=== PATIENT | female | born 1975 | race Caucasian/White ===

== ENCOUNTER → 2018-03-22 | Outpatient (CLI) | payer OTHER | END | disposition home or self-care (01) | LOC: LAB SHORT 12:45 → LAB 12:45 | DX: N39.0 Urinary tract infection, site not specified (principal) | CPT/HCPCS: 87086; 87147 ==

== ENCOUNTER → 2018-09-05 | Outpatient (CLI) | payer OTHER ==
[2018-09-06 10:33] LABS: Candida species (DNA Probe) Negative (NEGATIVE); G. vaginalis (DNA Probe) Negative (NEGATIVE); T. vaginalis (DNA Probe) Negative (NEGATIVE)
== END | disposition home or self-care (01) ==
LOC: LAB SHORT 15:18 → LAB 15:18
PROVIDERS: Obstetrics & Gynecology
DX: N89.8 Other specified noninflammatory disorders of vagina (principal)
CPT/HCPCS: 87070; 87205; 87480; 87510; 87660

== ENCOUNTER → 2019-03-11 | Outpatient (CLI) | payer OTHER | END | disposition home or self-care (01) | LOC: LAB SHORT 15:54 → LAB 15:54 | DX: N39.0 Urinary tract infection, site not specified (principal) | CPT/HCPCS: 87086 ==

== ENCOUNTER → 2019-06-01 | Outpatient (CLI) | payer OTHER, BC | LOC: LAB SHORT 11:57 → LAB EV 11:57 | DX: N39.0 Urinary tract infection, site not specified (principal) | CPT/HCPCS: 87077; 87086; 87186 ==

== ENCOUNTER → 2019-10-15 | Outpatient (CLI) | payer BC, OTHER | END | disposition home or self-care (01) | LOC: LAB 14:19 → LAB SHORT 14:19 | DX: R30.0 Dysuria (principal) | CPT/HCPCS: 87086 ==

== ENCOUNTER → 2019-11-17 | Outpatient (CLI) | payer BC, OTHER | END | disposition home or self-care (01) | LOC: LAB SHORT 17:39 → LAB 17:39 | PROVIDERS: Obstetrics & Gynecology | DX: Z01.419 Encounter for gynecological examination (general) (routine) without abnormal findings (principal) | CPT/HCPCS: 87624; G0123 ==

== ENCOUNTER 2020-11-06 17:05 | Emergency (ER) | payer BC, OTHER ==
[~2020-11-06] VITALS: Ht 162.6 cm; Wt 81.7 kg
== END 2020-11-06 17:46 | disposition home or self-care (01) ==
LOC: ER 17:05
DX: S91.311A Laceration without foreign body, right foot, initial encounter (principal); Z23 Encounter for immunization; W45.8XXA Other foreign body or object entering through skin, initial encounter
CPT/HCPCS: 90471; 90714; 99282-25

== ENCOUNTER 2020-11-18 14:42 | Inpatient (IN) | payer BC, OTHER ==
[~2020-11-18] VITALS: Ht 162.6 cm; Wt 99.9 kg
[2020-11-18 16:09] LABS: BASOPHILS ABSOLUTE AUTO 0.04 K/mm3 (0.00-0.23); BASOPHILS PERCENT AUTO 0 % (0-2); EOSINOPHILS ABSOLUTE AUTO 0.04 K/mm3 (0.00-0.68); EOSINOPHILS PERCENT AUTO 0 % (0-6); Hematocrit 44.2 % (33.0-51.0); Hemoglobin 14.9 g/dL (11.5-16.0); IMMATURE GRAN ABSOLUTE AUTO 0.05 K/mm3 (0.00-0.10); IMMATURE GRAN PERCENT AUTO 0 % (0-1); LYMPHOCYTES ABSOLUTE AUTO 1.79 K/mm3 (0.84-5.20); LYMPHOCYTES PERCENT AUTO 16 % (21-46); MONOCYTES PERCENT AUTO 4 % (4-13); Mean Corpuscular HGB Conc 33.7 g/dL (31.5-36.5); Mean Corpuscular Volume 86 fL (80-100); Mean Platelet Volume 9.9 fL (9.1-12.4); NEUTROPHILS ABSOLUTE AUTO 8.95 K/mm3 (1.96-9.15); NEUTROPHILS PERCENT AUTO 79 % (41-73); Platelet Count 354 K/mm3 (150-400); RDW Coefficient Variation 12.9 % (11.7-14.2); RDW Standard Deviation 40.5 fL (35.1-46.3); Red Blood Cell Count 5.13 M/mm3 (3.80-5.20); White Blood Cell Count 11.27 K/mm3 (4.00-11.30)
[2020-11-18 16:30] LABS: Alanine Aminotransfer (ALT/SGP 22 U/L (12-78); Albumin, Blood 4.2 g/dL (3.4-5.0); Albumin/Globulin Ratio 1.1 (0.8-1.8); Alk Phos 89 U/L (50-136); Anion Gap 9 mmol/L (6-16); Aspartate Aminotrans (AST/SGOT 15 U/L (12-37); Bilirubin, Total 0.2 mg/dL (0.1-1.0); Blood Urea Nitrogen 13 mg/dL (8-24); Bun/Creatinine Ratio 16.1 (12.0-20.0); CO2, Blood 24 mmol/L (21-32); Calcium, Blood 9.4 mg/dL (8.5-10.1); Chloride, Blood 107 mmol/L (98-108); Creatinine, Blood 0.81 mg/dL (0.40-1.00); Globulin, Blood 3.8 g/dL (2.2-4.0); Glomerular Filtration Rate >60 (60-); Glucose, Blood 107 mg/dL (70-99); Sodium, Blood 140 mmol/L (136-145)
[2020-11-18 17:30] LABS: Source, Urine Clean Catch
[2020-11-18 17:33] LABS: Appearance, Urine Hazy (Clear); Bilirubin, Urine Neg (Neg); Blood, Urine 4+ (Neg); Color, Urine Yellow (P-Yellow); Glucose Qualitative, Urine Neg (Neg); Ketones, Urine Neg (Neg); Leukocyte Esterase, Urine 2+ (Neg); Nitrite, Urine Pos (Neg); Protein, Urine Neg (Neg); Specific Gravity, Urine 1.015 (1.003-1.022); Urobilinogen, Urine NORM (Normal)
[2020-11-18 17:54] LABS: Bacteria Many /hpf; Mucus Light (0-Heavy); Squamous Epithelial Cells Mod /hpf (Few)
[2020-11-18] MEDS ORDERED: ASPIR 8181 M1 PO (18:38)
[2020-11-18] MEDS ORDERED: SYNTHROID75 MCG PO (18:38)
[2020-11-18 19:39] LABS: Source, Urine Catheter
[2020-11-18 19:43] LABS: Appearance, Urine Hazy (Clear); Bilirubin, Urine Neg (Neg); Blood, Urine 5+ (Neg); Color, Urine Yellow (P-Yellow); Glucose Qualitative, Urine Neg (Neg); Ketones, Urine Neg (Neg); Leukocyte Esterase, Urine 2+ (Neg); Nitrite, Urine Pos (Neg); Protein, Urine 2+ (Neg); Specific Gravity, Urine 1.025 (1.003-1.022); Urobilinogen, Urine NORM (Normal)
[2020-11-18 19:54] LABS: Mucus Heavy (0-Heavy)
[2020-11-18 19:55] LABS: Bacteria Many /hpf; Red Blood Cells, Urine 25-50 /hpf (0-2); Squamous Epithelial Cells Not Seen /hpf (Few)
[2020-11-18 19:56] LABS: Transitional Epithelial Cells Rare /hpf (0-Rare)
--- NOTE | 2020-11-19 03:19 | NUR ---
SHIFT SUMMARY PT ER ADMIT THIS SHIFT FOR PYELONEPHRITIS, AND KIDNEY STONES WHICH ARE BEING CONSERVATIVELY MANAGED AT THIS TIME. PT ALSO IN WITH UTI. SHE WAS MEDICATED FOR R FLANK PAIN IN THE ER, AND WAS GIVEN IV ANTIBIOTICS. PT REPORTS THAT HER PAIN HAS GREATLY IMPROVED, AND SHE STATES THAT SHE FELT THE PAIN HAS MOVED FROM HER FLANK TO HER R LOWER QUADRANT AND DESCRIBES IT HAS A CRAMPING LIKE PAIN, BUT STATES MUCH IMPROVED FROM HOW SHE FELT WHEN SYMPTOMS FIRST BEGAN. SHE RATES HER PAIN 2 (0-10). PT ENCOURAGED TO CALL IF PAIN INCREASES. WHEN ROUNDED ON SHE JENNIE THE NEED FOR PAIN MEDICATION. PT HAS BEEN INDEPENDENT IN THE ROOM. SHE HAS BEEN VOIDING WITHOUT DIFFICULTY. STRAINER IN HAT TO CATCH A STONE THAT MAY PASS. PT A/OX4, PLESANT WITH CARE. BED IN LOWEST POSITION, CALL LIGHT WITHIN REACH.
[2020-11-19 05:01] LABS: BASOPHILS ABSOLUTE AUTO 0.03 K/mm3 (0.00-0.23); BASOPHILS PERCENT AUTO 0 % (0-2); EOSINOPHILS ABSOLUTE AUTO 0.05 K/mm3 (0.00-0.68); EOSINOPHILS PERCENT AUTO 1 % (0-6); Hematocrit 41.2 % (33.0-51.0); Hemoglobin 13.7 g/dL (11.5-16.0); IMMATURE GRAN ABSOLUTE AUTO 0.03 K/mm3 (0.00-0.10); IMMATURE GRAN PERCENT AUTO 0 % (0-1); LYMPHOCYTES ABSOLUTE AUTO 2.66 K/mm3 (0.84-5.20); LYMPHOCYTES PERCENT AUTO 26 % (21-46); MONOCYTES ABSOLUTE AUTO 0.74 K/mm3 (0.16-1.47); MONOCYTES PERCENT AUTO 7 % (4-13); Mean Corpuscular HGB 28.5 pg (26.0-34.0); Mean Corpuscular HGB Conc 33.3 g/dL (31.5-36.5); Mean Corpuscular Volume 86 fL (80-100); Mean Platelet Volume 10.1 fL (9.1-12.4); NEUTROPHILS ABSOLUTE AUTO 6.92 K/mm3 (1.96-9.15); NEUTROPHILS PERCENT AUTO 66 % (41-73); Platelet Count 284 K/mm3 (150-400); White Blood Cell Count 10.43 K/mm3 (4.00-11.30)
[2020-11-19 05:21] LABS: Alanine Aminotransfer (ALT/SGP 20 U/L (12-78); Albumin, Blood 3.2 g/dL (3.4-5.0); Alk Phos 76 U/L (50-136); Anion Gap 5 mmol/L (6-16); Aspartate Aminotrans (AST/SGOT 11 U/L (12-37); Bilirubin, Total 0.4 mg/dL (0.1-1.0); Blood Urea Nitrogen 11 mg/dL (8-24); Bun/Creatinine Ratio 14.4 (12.0-20.0); CO2, Blood 27 mmol/L (21-32); Calcium, Blood 8.6 mg/dL (8.5-10.1); Chloride, Blood 109 mmol/L (98-108); Creatinine, Blood 0.77 mg/dL (0.40-1.00); Globulin, Blood 3.3 g/dL (2.2-4.0); Glomerular Filtration Rate >60 (60-); Glucose, Blood 99 mg/dL (70-99); Potassium, Blood 3.9 mmol/L (3.5-5.5); Sodium, Blood 141 mmol/L (136-145); Total Protein, Blood 6.5 g/dL (6.4-8.2)
--- NOTE | 2020-11-19 12:24 | NUR ---
ASSUMING CARE FOR THIS PATIENT. RECEIVED BEDSIDE REPORT FROM MARIANA GARCIA.
--- NOTE | 2020-11-19 18:23 | NUR ---
SHIFT SUMMARY PT A&OX4 AND INDEPENDENT IN ROOM. PT CALLS APPROPRIATLY. TALKED WITH DR. MENON AND RECEIVED ORDER FOR LR AT 150 AND TO HAVE THE PATIENT DRINK FLUIDS IN HOPES THAT IT WILL HELP FLUSH THE STONE. URINE HAS BEEN STRAINED THROUGHOUT SHIFT AND NO STONE HAS BEEN SEEN. PT COMPLAINED OF HEADACHE THIS AFTERNOON, MEDICATED WITH APAP AND OFFERED COLD COMPRESS. PT TOOK SHOWER THIS AFTERNOON. CURENTLY IN ROOM WATCHING TV, CALL LIGHT WITH IN REACH. NO ACUTE CHANGES THIS SHIFT.
--- NOTE | 2020-11-19 18:55 | NUR ---
ASSUMED CARE RECEIVED REPORT FROM RADHA DE LOS SANTOS. PT RESTING QUIETLY, IN NO ACUTE DISTRESS. DENIES NEEDS AT THIS TIME. CALL LIGHT, POSSESSIONS IN REACH, BED IN LOW POSITION. CONTINUE TO MONITOR.
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
[2020-11-20] MEDS ORDERED: TAMS.4ER PO (12:40)
--- NOTE | 2020-11-20 15:48 | NUR ---
DISCHARGE PT DC HOME. NEW RX FAXED TO [facility]. IV TAKEN OUT BEFORE PT LEFT FLOOR. PT TAKEN OFF FLOOR VIA WHEELCHAIR TO EXIT BY THIS RN. WENT OVER DC PACKET WITH PATIENT BUT PT DID NOT TAKE PACKET WITH HER. PACKET IN FILE. PT THANK STAFF FOR HER CARE. PT GOT IN CAR W/O ANY ISUES, DROVE PT HOME.
== END 2020-11-20 13:12 | disposition home or self-care (01) | DRG 690 ==
LOC: ER 14:42 → MEDS 22:10
PROVIDERS: Emergency Medicine; Physician Assistant; ADMIT Family Medicine
DX: N13.6 Pyonephrosis (principal); E03.9 Hypothyroidism, unspecified; Z87.440 Personal history of urinary (tract) infections; Z79.82 Long term (current) use of aspirin
CPT/HCPCS: 36415; 74176; 76770; 80053; 81001; 83605; 83690; 85025; 87040; 87077; 87086; 87186; 96361; 96365; 96375; 99285-25; A9270; J0696; J1650; J1885; J2270; J2405; J7120; P9612

== ENCOUNTER → 2020-11-18 | Outpatient (CLI) | payer BC, OTHER ==
[~2020-11-18] MED LIST: ASPIR 8181 M1 PO; SYNTHROID75 MCG PO; TAMS.4ER PO
== END ==
LOC: LAB EV 15:14 → LAB SHORT 15:14
DX: R31.9 Hematuria, unspecified (principal)
CPT/HCPCS: 87077; 87086; 87186

== ENCOUNTER → 2020-11-25 | Outpatient (CLI) | payer BC, OTHER ==
[2020-12-02 13:11] LABS: CALCIUM OXALATE MONOHYDRATE 100 % (.); COLOR Brown (.); SIZE 3x3 mm (.); WEIGHT 9 mg (.)
== END | disposition home or self-care (01) ==
LOC: LAB 18:01 → LAB SHORT 18:01
PROVIDERS: Family Medicine
DX: N20.0 Calculus of kidney (principal)
CPT/HCPCS: 82365

== ENCOUNTER → 2023-10-03 | Outpatient (CLI) | payer OTHER | END | disposition home or self-care (01) | LOC: LAB SHORT 17:03 → LAB 17:03 | DX: R30.0 Dysuria (principal) | CPT/HCPCS: 87086 ==

== ENCOUNTER → 2024-06-03 | Outpatient (CLI) | payer OTHER | LOC: LAB SHORT 13:49 → LAB 13:49 | DX: N39.0 Urinary tract infection, site not specified (principal) | CPT/HCPCS: 87086 ==